=== PATIENT | male | born 1960 | race Caucasian/White ===

== ENCOUNTER → 2016-10-16 | Outpatient (CLI) | payer MEDICARE, OTHER ==
--- NOTE | 2016-10-16 15:07 | RADRPT ---
PROCEDURE: US Abdomen Complete. CLINICAL INDICATION: ABD PAIN TECHNIQUE: Multiple real-time images were acquired of the patient's abdomen and retroperitoneum ut ilizing a high resolution transducer. COMPARISON: None FINDINGS: The liver measures 16.8 cm and demonstrates increased echogenicity. There is no intrahepatic biliary ductal dilatation. The extrahepatic common bile duct measures 5 mm. The main portal vein is patent with proper directional flow. The gallbladder is without stones, wall thickening, or pericholecystic fluid. The pancreas is not visualized. The spleen is not visualized. The right kidney measures 13.3 x 6.9 x 5.7 cm. The left kidney measures 12.5 x 6.4 x 5.6 cm. There a re no renal calculi or hydronephrosis bilaterally. The visualized abdominal aorta is grossly unremarkable. The IVC is not visualized. IMPRESSION: Mild hepatomegaly with moderate to severe fatty infiltration. No cholelithiasis or acute cholecystitis. Normal CBD. The pancreas, spleen, and IVC are not visualized. Correlation with surgical history for splenectomy is recommended. RPTAT: EE Physician Obdulia Date Time Electronically viewed and signed by Physician Obdulia on 10/16/2016 15:07 /
== END | disposition home or self-care (01) ==
LOC: U/S 09:53
PROVIDERS: ATTEND Internal Medicine
DX: R10.9 Unspecified abdominal pain (principal); R16.0 Hepatomegaly, not elsewhere classified; K76.0 Fatty (change of) liver, not elsewhere classified
CPT/HCPCS: 76700

== ENCOUNTER 2018-10-15 15:21 | Emergency (ER) | payer MEDICARE, OTHER ==
[~2018-10-15] VITALS: Ht 177.8 cm; Wt 81.8 kg
[2018-10-15 15:26] VITALS: Ht 177.8 cm; Wt 81.8 kg
--- NOTE | 2018-10-15 15:45 | ERD ---
ER Documentation Chief Complaint Chief Complaint Referred by MD for low blood pressure HPI 57-year-old male history of hypertension, diabetes mellitus, hyperlipidemia and schizophrenia, referred to the ED by his PMD Dr. Alcantar for evaluation of hypotension. Patient presented for his regular clinic visit, systolic blood pressure was in the high 70s so he was referred to the ED for further evaluation. Patient is asymptomatic. Denies chest pain, palpitations, shortness of breath, abdominal pain, nausea, vomiting, diarrhea, dysuria or polyuria. No fevers or chills. Patient hit his head in frustration 4 days ago but denies headache, visual changes, focal weakness or numbness. No neck or back pain. ROS All systems reviewed and are negative except as per history of present illness. Medications Home Meds Reported Medications Lutein (Lutein) 10 Mg Tablet, 10 MG PO DAILY, TAB 10/15/18 Loperamide Hcl* (Imodium*) 2 Mg Capsule, 2 MG PO .WITH EACH DIARRHEA PRN for NEEDED, CAP MAX 16 mg/day 10/15/18 Bupropion Hcl* (Wellbutrin XL*) 150 Mg Tab.sr.24h, 150 MG PO QAM, TAB.SA 10/15/18 Cholecalciferol* (Vitamin D3*) 1,000 Unit Tablet, 1000 UNIT PO DAILY, TAB 10/15/18 Losartan Potassium* (Losartan Potassium*) 25 Mg Tablet, 25 MG PO BID, TAB 10/15/18 Atorvastatin Calcium* (Atorvastatin Calcium*) 20 Mg Tablet, 20 MG PO QHS, #30 TAB 10/15/18 Metoprolol Tartrate* (Lopressor*) 25 Mg Tab, 25 MG PO BID, #60 TAB 10/15/18 Multivitamin* (Daily Value*) 1 Each Tablet, 1 TAB PO DAILY, TAB 10/15/18 Metformin Hcl* (Metformin Hcl*) 500 Mg Tablet, 500 MG PO WITH BREAKFAST DINNE, #60 TAB 10/15/18 Pioglitazone Hcl* (Pioglitazone Hcl*) 30 Mg Tablet, 30 MG PO DAILY, TAB 10/15/18 Nateglinide* (Nateglinide*) 120 Mg Tablet, 120 MG PO AC MEALS, TAB 10/15/18 Insulin Glargine* (Lantus*) 100 Unit/Ml Soln, 28 UNIT SC QHS, #1 VIAL 10/15/18 Pantoprazole* (Pantoprazole*) 40 Mg Tablet.dr, 40 MG PO AC BREAKFAST, TAB 10/15/18 Docusate Sodium* (Colace*) 100 Mg Capsule, 100 MG PO BID, #60 CAP 10/15/18 Clozapine* (Clozaril*) 100 Mg Tab, 100 MG PO TID, TAB 1tab-qam, 1tab-noon,4tab-qhs. 10/15/18 Allergies Allergies: Coded Allergies: No Known Allergy (Unverified , 10/15/18) PMhx/Soc Reviewed in chart. As per HPI. History of Surgery: No Anesthesia Reaction: No Hx Neurological Disorder: No Hx Respiratory Disorders: No Hx Cardiac Disorders: Yes (Hypertension) Hx Psychiatric Problems: Yes (Schizophrenia) Hx Miscellaneous Medical Probl: Yes (Diabetes and hyperlipidemia) Hx Alcohol Use: No Hx Substance Use: No Hx Tobacco Use: No FmHx No stroke, cancer or family history relevant to presenting complaint Physical Exam Vitals Vital Signs Date Temp Pulse Resp B/P (MAP) Pulse Ox O2 O2 Flow FiO2 Time Delivery Rate 10/15/18 97.9 97 16 124/75 98 Room Air 18:00 (91) 10/15/18 97.9 94 14 103/71 98 Room Air 16:45 (82) 10/15/18 94 14 103/71 98 Room Air 15:49 (82) 10/15/18 97.0 98 20 88/59 (69) 98 15:26 Physical Exam Const: Alert, no acute distress Head: Right forehead resolving ecchymosis. No tenderness. Eyes: Pupils equal reactive to light, extraocular movements are intact. No subconjunctival hemorrhage. Mild, right, lateral orbital ecchymoses. No tenderness. No infraorbital step-off. No cheek hyperesthesias or paresthesias. ENT: Normal External Ears, Nose and Mouth. Negative richard sign. Neck: Full range of motion. No midline bony tenderness or paraspinal muscle spasm. Resp: Clear to auscultation bilaterally Cardio: Regular rate and rhythm, no murmurs Abd: Soft, non tender, non distended. Normal bowel sounds Skin: No petechiae or rashes Back: No midline or flank tenderness Ext: No cyanosis, or edema Neur: Awake and alert. There is 2 through 12 are grossly intact. Motor and sensory equal bilaterally. No focal deficit observed. Psych: Cooperative. Bizarre affect. Patient does not appear anxious or depressed. No hallucinations or suicidal ideations Result Diagram: 10/15/18 1547 10/15/18 1547 Results 24 hrs Laboratory Tests Test 10/15/18 15:42 10/15/18 15:47 10/15/18 16:14 Bedside Glucose 153 mg/dL White Blood Count 7.2 10^3/ul Red Blood Count 4.89 10^6/ul Hemoglobin 13.6 g/dl Hematocrit 42.9 % Mean Corpuscular Volume 87.7 fl Mean Corpuscular Hemoglobin 27.8 pg Mean Corpuscular 31.7 g/dl Hemoglobin Concent Red Cell Distribution Width 15.5 % Platelet Count 276 10^3/UL Mean Platelet Volume 10.4 fl Immature Granulocytes % 0.300 % Neutrophils % 63.1 % Lymphocytes % 25.7 % Monocytes % 10.1 % Eosinophils % 0.0 % Basophils % 0.8 % Nucleated Red Blood Cells % 0.0 /100WBC Immature Granulocytes # 0.020 10^3/ul Neutrophils # 4.5 10^3/ul Lymphocytes # 1.9 10^3/ul Monocytes # 0.7 10^3/ul Eosinophils # 0.0 10^3/ul Basophils # 0.1 10^3/ul Nucleated Red Blood Cells # 0.0 10^3/ul Sodium Level 145 mmol/L Potassium Level 3.7 mmol/L Chloride Level 105 mmol/L Carbon Dioxide Level 21 mmol/L Anion Gap 19 Blood Urea Nitrogen 10 mg/dl Creatinine 0.88 mg/dl Est Glomerular Filtrat > 60 mL/min Rate mL/min Glucose Level 160 mg/dl Calcium Level 9.8 mg/dl Total Bilirubin 0.2 mg/dl Direct Bilirubin 0.00 mg/dl Indirect Bilirubin 0.2 mg/dl Aspartate Amino 25 IU/L Transf (AST/SGOT) Alanine 14 IU/L Aminotransferase (ALT/SGPT) Alkaline Phosphatase 83 IU/L Troponin I < 0.012 ng/ml Total Protein 8.1 g/dl Albumin 4.4 g/dl Globulin 3.70 g/dl Albumin/Globulin Ratio 1.18 Thyroid Stimulating 2.420 MIU/L Hormone (TSH) Ethyl Alcohol Level < 10.0 mg/dl Urine Color SAMMIE Urine Clarity SLIGHTLY CLOUDY Urine pH 5.0 Urine Specific [place] 1.019 Urine Ketones NEGATIVE mg/dL Urine Nitrite NEGATIVE mg/dL Urine Bilirubin NEGATIVE mg/dL Urine Urobilinogen 1+ mg/dL Urine Leukocyte Esterase TRACE Nena/ul Urine Microscopic RBC 2 /HPF Urine Microscopic WBC 11 /HPF Urine Squamous Epithelial Cells FEW /HPF Urine Hyaline Casts FEW /HPF Urine Mucus MODERATE /HPF Urine Hemoglobin NEGATIVE mg/dL Urine Glucose NEGATIVE mg/dL Urine Total Protein 1+ mg/dl Urine Opiates Screen Negative Urine Barbiturates Negative Urine Amphetamines Screen Negative Urine Benzodiazepines Screen Negative Urine Cocaine Screen Negative Urine Cannabinoids Negative Current Medications Medications Dose Sig/Julio Start Time Status Last (Trade) Ordered Route PRN Stop Time Admin Dose Reason Admin Lactated 1,000 ml @ Q1H STAT 10/15/18 DC Ringer's 1,000 mls/hr IV 16:13 10/15/18 16:18 Sodium 1,000 ml @ Q1H STAT 10/15/18 DC 10/15/18 Chloride 1,000 mls/hr IV 16:17 16:18 10/15/18 17:16 Procedures/MDM DOCUMENTS REVIEWED: ED nurse, prior records EKG: Time: 15:56. Sinus rhythm. Ventricular rate 92. Normal AR interval. Incomplete right bundle branch block. No acute ST segment elevation or depression. No ectopy. Mildly prolonged QT interval. My Interpretation IMAGING: PROCEDURE: CT Head without contrast. CLINICAL INDICATION: Trauma with pain TECHNIQUE: The study was performed utilizing a GE 64-slice multidetector CT scanner. Direct spiral axial CT images of the brain were obtained from the vertex to the skull base without contrast. Coronal and sagittal reformatted images are provided. The CTDI vol is 36.21 mGy and the DLP is 634.23 mGy-cm. The images were reviewed on a PACS workstation. DICOM images are available. One or more of the following dose reduction techniques were used: Automated exposure control. Adjustment of the mA and/or kV according to patient size. Use of iterative reconstruction technique. COMPARISON: No prior studies are available for comparison. FINDINGS: Mild diffuse atrophy is seen with a compensatory ventricular enlargement. Mild white matter disease in the periventricular and deep white matter is seen. The ashford-white matter differentiation is maintained. No intra or extra-axial fluid collection or mass effect or shift in the midline structures is seen. The visualized paranasal sinuses, mastoid air cells, orbits, and calvarium are unremarkable. Vascular calcifications are seen. IMPRESSION: 1. No acute intracranial pathology. 2. Mild diffuse volume loss and mild chronic microvascular ischemic changes. RPTAT: HPNM Physician Brayan Date Time Electronically viewed and signed by Blair Milton Physician on 10/15/2018 17:16 / REEXAMINATION/REEVALUATION: Time: 1742. Dr Alcantar. Recommends discharge. Hold losartan, increase fluid intake and follow-up in his office next week [employer]-year-old male history of hypertension, diabetes mellitus, hyperlipidemia and schizophrenia, referred to the ED by his PMD Dr. Alcantar for evaluation of hypotension. Patient presented for his regular clinic visit, systolic blood pressure was in the high 70s so he was referred to the ED for further evaluation. CBC to evaluate for leukocytosis, anemia or thrombocytopenia is unremarkable. Chemistry to evaluate for renal insufficiency and electrolyte abnormalities reveals borderline hypernatremia but no hyperglycemia or renal insufficiency. Urinalysis to evaluate for infection reveals several WBCs but not consistent with acute urinary tract infection and a culture is pending. EKG to evaluate for arrhythmia and ischemia is unremarkable. CT of the brain reveals chronic, microvascular ischemic changes but no extra-axial fluid collection, subdural/epidural hematoma, hydrocephalus or acute ischemia. Mild dehydration and blood pressure normalized after intravenous hydration. No signs of a serious, bacterial, occult infectious process, systemic inflammatory response syndrome or sepsis. Abdominal exam is completely benign without tenderness, rebound, guarding, signs of peritonitis or occult intra- abdominal process including but not limited to mesenteric ischemia and abdominal aortic aneurysm, hence advanced imaging is deferred. Patient's antihypertensive will be adjusted. Stable for discharge with precautionary instructions and outpatient follow-up as counseled. Counseled patient and family regarding diagnostic workup, diagnosis and need for followup. Understands to return to ED if symptoms recur, worsen or any other concerns. Departure Diagnosis: Primary Impression: Hypotension Hypotension type: unspecified hypotension type Qualified Codes: I95.9 - Hypotension, unspecified Additional Impressions: Closed head injury Encounter type: initial encounter Qualified Codes: S09.90XA - Unspecified injury of head, initial encounter Dehydration Schizophrenia Schizophrenia type: unspecified Qualified Codes: F20.9 - Schizophrenia, unspecified Condition: Stable (Improved) MILA LISA MD Oct 15, 2018 15:45
[2018-10-15] MEDS ORDERED: LACTATED RINGER'S 1,000 ML IV STA (16:13)
[2018-10-15] MEDS ORDERED: SOD CHLORIDE 0.9% 1,000 ML IV STA (16:17)
[2018-10-15] MEDS ORDERED: CLZP100T PO (16:54)
[2018-10-15] MEDS ORDERED: LANT3I SC (16:55)
[2018-10-15] MEDS ORDERED: DOCU-144 PO (16:55)
[2018-10-15] MEDS ORDERED: PANT40TA4 PO (16:55)
[2018-10-15] MEDS ORDERED: NATE120T PO (16:56)
[2018-10-15] MEDS ORDERED: PIOG30TA71 PO (16:56)
[2018-10-15] MEDS ORDERED: METF500T24 PO (16:56)
[2018-10-15] MEDS ORDERED: MULT-542 PO (16:57)
[2018-10-15] MEDS ORDERED: LOSA25TA12 PO (16:58)
[2018-10-15] MEDS ORDERED: METO-448 PO (16:58)
[2018-10-15] MEDS ORDERED: ATOR20TA38 PO (16:58)
[2018-10-15] MEDS ORDERED: CHOL100062 PO (16:59)
[2018-10-15] MEDS ORDERED: BUPR-75 PO (17:00)
[2018-10-15] MEDS ORDERED: LOPE2CAP PO (17:01)
[2018-10-15] MEDS ORDERED: LUTE10TA2 PO (17:01)
[2018-10-15 18:00] VITALS: BP 124/75; PULSE 97; RESP 16
== END 2018-10-15 18:06 | disposition home or self-care (01) ==
LOC: E/R 15:21
DX: I95.9 Hypotension, unspecified (principal); E86.0 Dehydration; F20.9 Schizophrenia, unspecified; I10 Essential (primary) hypertension; E11.9 Type 2 diabetes mellitus without complications; R51 Headache; S05.11XA Contusion of eyeball and orbital tissues, right eye, initial encounter; W22.8XXA Striking against or struck by other objects, initial encounter; Y92.9 Unspecified place or not applicable; Z79.4 Long term (current) use of insulin
CPT/HCPCS: 36415; 70450; 71045; 80053; 80307; 81001; 82962; 84443; 84484; 85025; 87086; 93005; 96360; 96361; 99285; J7030; J7120